=== PATIENT | female | born 1935 | race Caucasian/White ===

== ENCOUNTER 2017-09-11 09:53 | Inpatient (IN) | payer OTHER, MEDICARE ==
[2017-09-11] MEDS: CEFAZOLIN 1 GM/50 ML (PMX) 50 ML IVPB ×2 (12:00→20:59)
[2017-09-11] MEDS ORDERED: ACETAMINOPHEN 325 MG TAB PO (12:00)
[2017-09-11] MEDS ORDERED: NALOXONE (0.4 MG/ML) INJ IV (12:00)
[2017-09-11] MEDS ORDERED: ONDANSETRON 4 MG INJ IV ×2 (12:00→15:30)
[2017-09-11] MEDS ORDERED: PROPOFOL 20 ML (12:48)
[2017-09-11] MEDS ORDERED: GLYCOPYRROLATE 0.4 MG INJ ×2 (12:48→14:41)
[2017-09-11] MEDS ORDERED: LIDOCAINE 2% (SDV) 5 ML INJ (12:48)
[2017-09-11] MEDS ORDERED: SUCCINYLCHOLINE CHLORIDE 100 MG/5 ML SYG IV (12:48)
[2017-09-11] MEDS ORDERED: ROCURONIUM 50 MG INJ (12:48)
[2017-09-11] MEDS ORDERED: NEOSTIGMINE 3 MG/3 ML SYRINGE (12:48)
[2017-09-11] MEDS ORDERED: MEPERIDINE 100 MG INJ (12:50)
[2017-09-11] MEDS ORDERED: LABETALOL HCL 20MG INJ (13:26)
[2017-09-11] MEDS ORDERED: GELATIN SIZE 100 SPONGE (14:00)
[2017-09-11] MEDS ORDERED: FENTAnyl 50 MCG/ML VIAL (14:26)
[2017-09-11] MEDS ORDERED: CEFAZOLIN 1 GM INJ (14:41)
[2017-09-11] MEDS ORDERED: EPHEDrine SULFATE 50 MG/5 ML SYG (14:41)
[2017-09-11] MEDS: CA CHLORIDE 10% 10 ML SYRINGE (14:45)
[2017-09-11] MEDS: HEPARIN 1000 UNITS/ML 10 ML INJ (14:45)
[2017-09-11] MEDS: LIDOCAINE 1%/EPI 30 ML INJ (14:46)
[2017-09-11] MEDS: THROMBIN 5000 UNIT VIAL (14:46)
[2017-09-11] MEDS: GELATIN SIZE 100 SPONGE TOP (14:47)
[2017-09-11] MEDS ORDERED: METOCLOPRAMIDE 10 MG INJ (14:59)
[2017-09-11] MEDS ORDERED: ONDANSETRON 4 MG INJ (14:59)
[2017-09-11] MEDS ORDERED: NALOXONE (0.4 MG/ML) INJ (15:06)
[2017-09-11] MEDS: HYDROmorphONE 0.2 MG/ML PCA IV (15:21)
[2017-09-11] MEDS: HYDROmorphONE (0.2 MG/ML) 10ML SYG IV ×2 (15:28→16:02)
[2017-09-11] MEDS ORDERED: DIPHENHYDRAMINE 50 MG INJ IV (15:30)
[2017-09-11] MEDS ORDERED: OXYCODONE/ACETAMINOPHEN (5/325) TAB PO ×2 (15:30)
[2017-09-11] MEDS ORDERED: EPHEDrine SULFATE 50 MG/5 ML SYG IV (15:30)
[2017-09-11] MEDS ORDERED: MEPERIDINE 25 MG INJ IV (15:30)
[2017-09-11] MEDS ORDERED: LABETALOL HCL 20MG INJ IV (15:30)
[2017-09-11] MEDS ORDERED: MIDAZOLAM 1 MG/ML 2 ML INJ IV (15:30)
[2017-09-11] MEDS ORDERED: FENTAnyl 50 MCG/ML VIAL IV ×3 (15:30)
[2017-09-11] MEDS ORDERED: HYDROmorphONE (0.2 MG/ML) 10ML SYG IV (15:30)
[2017-09-11] MEDS ORDERED: METOCLOPRAMIDE 10 MG INJ IV (15:30)
[2017-09-11] MEDS ORDERED: hydrALAzine 20 MG INJ IV (15:30)
[2017-09-11] MEDS: D5W-0.45 NACL + KCL 20 MEQ 1,000 ML IV ×2 (15:50→21:46)
[2017-09-11] MEDS: DOCUSATE SODIUM 100 MG CAP PO (20:59)
[2017-09-11] MEDS: AL HYDROX/MG HYDROX/SIMETH 30 ML CUP PO (23:26)
[2017-09-12] MEDS: D5W-0.45 NACL + KCL 20 MEQ 1,000 ML IV ×4 (01:15→17:46)
[2017-09-12] MEDS: DIPHENHYDRAMINE 50 MG INJ IV (01:21)
[2017-09-12] MEDS: CEFAZOLIN 1 GM/50 ML (PMX) 50 ML IVPB (03:59)
[2017-09-12] MEDS: HYDROmorphONE 0.5 MG/0.5 ML SYG IV ×2 (04:42→08:42)
[2017-09-12 05:20] LABS: ADD MAN DIFF? NO
[2017-09-12 05:26] LABS: BASOPHILS % 0.1 % (0.0-2.0); HEMOGLOBIN 11.5 g/dl (12.0-16.0); LYMPHOCYTES % 27.3 % (15.0-51.0); MEAN CORPUSCULAR HEMOGLOBIN 30.5 pg (29.0-33.0); MEAN CORPUSCULAR HGB CONC 32.9 g/dl (32.0-37.0); MEAN CORPUSCULAR VOLUME 92.8 fl (82.0-101.0); MEAN PLATELET VOLUME 10.3 fl (7.4-10.4); MONOCYTE # 1.1 10^3/ul (0.3-0.9); MONOCYTES % 7.6 % (0.0-11.0); NEUTROPHIL # 9.5 10^3/ul (1.6-7.5); NEUTROPHILS % 64.5 % (39.0-77.0); PLATELET COUNT 264 10^3/UL (140-415); RED BLOOD COUNT 3.77 10^6/ul (4.20-5.40); RED CELL DISTRIBUTION WIDTH 13.9 % (11.5-14.5)
[2017-09-12 05:26] LABS: WHITE BLOOD COUNT 14.6 10^3/ul (4.8-10.8)
[2017-09-12] MEDS: PANTOPRAZOLE (EC) 40 MG TAB PO (05:34)
[2017-09-12] MEDS: HYDROmorphONE 0.2 MG/ML PCA IV ×2 (05:37→21:39)
[2017-09-12 06:39] LABS: ANION GAP 15 (8-16); BLOOD UREA NITROGEN 10 mg/dl (7-20); CALCIUM 8.3 mg/dl (8.4-10.2); CARBON DIOXIDE 25 mmol/L (21-31); CHLORIDE 105 mmol/L (97-110); CREATININE 0.67 mg/dl (0.44-1.00); GLUCOSE 108 mg/dl (70-220); POTASSIUM 4.8 mmol/L (3.5-5.1); SODIUM 140 mmol/L (135-144)
[2017-09-12] MEDS: DOCUSATE SODIUM 100 MG CAP PO ×2 (08:42→21:21)
[2017-09-12] MEDS ORDERED: HYDROCODONE/APAP (5/325) TAB PO (10:00)
[2017-09-12 22:23] LABS: ADD UMIC YES; UR ASCORBIC ACID NEGATIVE (NEGATIVE); UR BILIRUBIN (Dip) NEGATIVE (NEGATIVE); UR BLOOD (Dip) 3+ mg/dL (NEGATIVE); UR CLARITY CLEAR (CLEAR); UR COLOR COLORLESS (YELLOW); UR GLUCOSE (Dip) NEGATIVE (NEGATIVE); UR KETONES (Dip) NEGATIVE (NEGATIVE); UR LEUKOCYTE ESTERASE (Dip) NEGATIVE Leu/ul (NEGATIVE); UR NITRITE (Dip) NEGATIVE (NEGATIVE); UR RBC 2 /HPF (0-5); UR SPECIFIC GRAVITY (Dip) 1.002 (1.003-1.030); UR TOTAL PROTEIN (Dip) NEGATIVE (NEGATIVE); UR UROBILINOGEN (Dip) NEGATIVE (NEGATIVE); UR WBC 0 /HPF (0-5)
[2017-09-13] MEDS: D5W-0.45 NACL + KCL 20 MEQ 1,000 ML IV ×3 (03:44→23:46)
[2017-09-13] MEDS: PANTOPRAZOLE (EC) 40 MG TAB PO (05:08)
[2017-09-13 05:34] LABS: ADD MAN DIFF? NO
[2017-09-13 05:38] LABS: ABNORMAL IP MESSAGE 1; BASOPHIL # 0.1 10^3/ul (0.0-0.1); BASOPHILS % 0.4 % (0.0-2.0); EOSINOPHILS # 0.2 10^3/ul (0.0-0.5); EOSINOPHILS % 1.6 % (0.0-7.0); HEMATOCRIT 32.8 % (37.0-47.0); HEMOGLOBIN 11.1 g/dl (12.0-16.0); LYMPHOCYTES # 4.8 10^3/ul (0.8-2.9); LYMPHOCYTES % 31.8 % (15.0-51.0); MEAN CORPUSCULAR HEMOGLOBIN 31.1 pg (29.0-33.0); MEAN CORPUSCULAR HGB CONC 33.8 g/dl (32.0-37.0); MEAN CORPUSCULAR VOLUME 91.9 fl (82.0-101.0); MEAN PLATELET VOLUME 10.3 fl (7.4-10.4); MONOCYTE # 1.6 10^3/ul (0.3-0.9); MONOCYTES % 10.5 % (0.0-11.0); NEUTROPHIL # 8.3 10^3/ul (1.6-7.5); NEUTROPHILS % 55.3 % (39.0-77.0); PLATELET COUNT 228 10^3/UL (140-415); RED BLOOD COUNT 3.57 10^6/ul (4.20-5.40); RED CELL DISTRIBUTION WIDTH 13.9 % (11.5-14.5)
[2017-09-13 06:08] LABS: ANION GAP 12 (8-16); BLOOD UREA NITROGEN 4 mg/dl (7-20); CALCIUM 8.8 mg/dl (8.4-10.2); CARBON DIOXIDE 29 mmol/L (21-31); CHLORIDE 101 mmol/L (97-110); CREATININE 0.62 mg/dl (0.44-1.00); GLUCOSE 122 mg/dl (70-220); MAGNESIUM 2.4 mg/dl (1.7-2.5); POTASSIUM 4.6 mmol/L (3.5-5.1); SODIUM 137 mmol/L (135-144)
[2017-09-13 06:18] LABS: POSITIVE DIFF @See below
[2017-09-13] MEDS: CEPASTAT LOZENGE MT (07:47)
[2017-09-13] MEDS: DOCUSATE SODIUM 100 MG CAP PO ×2 (09:14→20:30)
[2017-09-13] MEDS: HYDROCODONE/APAP (5/325) TAB PO ×3 (09:14→20:31)
[2017-09-13] MEDS: AL HYDROX/MG HYDROX/SIMETH 30 ML CUP PO ×2 (15:10→21:56)
[2017-09-14 05:22] LABS: ADD MAN DIFF? NO
[2017-09-14 05:29] LABS: WHITE BLOOD COUNT 12.2 10^3/ul (4.8-10.8)
[2017-09-14 05:29] LABS: BASOPHIL # 0.1 10^3/ul (0.0-0.1); BASOPHILS % 0.5 % (0.0-2.0); EOSINOPHILS # 0.3 10^3/ul (0.0-0.5); EOSINOPHILS % 2.2 % (0.0-7.0); HEMATOCRIT 31.9 % (37.0-47.0); HEMOGLOBIN 10.8 g/dl (12.0-16.0); LYMPHOCYTES # 4.1 10^3/ul (0.8-2.9); LYMPHOCYTES % 33.6 % (15.0-51.0); MEAN CORPUSCULAR HEMOGLOBIN 30.7 pg (29.0-33.0); MEAN CORPUSCULAR HGB CONC 33.9 g/dl (32.0-37.0); MEAN CORPUSCULAR VOLUME 90.6 fl (82.0-101.0); MEAN PLATELET VOLUME 10.4 fl (7.4-10.4); MONOCYTE # 1.3 10^3/ul (0.3-0.9); MONOCYTES % 10.3 % (0.0-11.0); NEUTROPHIL # 6.5 10^3/ul (1.6-7.5); PLATELET COUNT 234 10^3/UL (140-415); RED BLOOD COUNT 3.52 10^6/ul (4.20-5.40); RED CELL DISTRIBUTION WIDTH 13.9 % (11.5-14.5)
[2017-09-14 05:44] LABS: ANION GAP 12 (8-16); BLOOD UREA NITROGEN 6 mg/dl (7-20); CARBON DIOXIDE 29 mmol/L (21-31); CHLORIDE 100 mmol/L (97-110); CREATININE 0.64 mg/dl (0.44-1.00); GLUCOSE 107 mg/dl (70-220); MAGNESIUM 2.3 mg/dl (1.7-2.5); POTASSIUM 4.2 mmol/L (3.5-5.1); SODIUM 137 mmol/L (135-144)
[2017-09-14] MEDS: PANTOPRAZOLE (EC) 40 MG TAB PO ×2 (06:00→07:50)
[2017-09-14] MEDS: HYDROCODONE/APAP (5/325) TAB PO ×4 (07:49→22:41)
[2017-09-14] MEDS: BISACODYL 10 MG SUPP PR (07:51)
[2017-09-14] MEDS: DOCUSATE SODIUM 100 MG CAP PO ×2 (07:51→20:24)
[2017-09-14] MEDS: D5W-0.45 NACL + KCL 20 MEQ 1,000 ML IV ×2 (09:46→19:46)
[2017-09-14] MEDS: AL HYDROX/MG HYDROX/SIMETH 30 ML CUP PO ×2 (12:46→20:24)
[2017-09-15] MEDS: D5W-0.45 NACL + KCL 20 MEQ 1,000 ML IV ×2 (04:57→15:46)
[2017-09-15] MEDS: BISACODYL 10 MG SUPP PR (05:58)
[2017-09-15] MEDS: PANTOPRAZOLE (EC) 40 MG TAB PO (05:58)
[2017-09-15] MEDS: HYDROCODONE/APAP (5/325) TAB PO ×2 (06:07→17:54)
[2017-09-15] MEDS: AL HYDROX/MG HYDROX/SIMETH 30 ML CUP PO (06:48)
[2017-09-15] MEDS: DOCUSATE SODIUM 100 MG CAP PO (08:44)
[2017-09-15] MEDS: POLYETHYLENE GLYCOL 17 GM PACKET PO (09:33)
[2017-09-15] MEDS: LACTULOSE 30ML CUP PO (15:44)
[2017-09-15] MEDS ORDERED: ATORVASTATIN 20 MG TAB PO (21:00)
== END 2017-09-15 18:00 | disposition home health service (06) | DRG 517 ==
LOC: REC 09:53 → MS1 16:50
PROC: 01NB0ZZ Release Lumbar Nerve, Open Approach (ICD-10-PCS; principal; 2017-09-11 12:00)
PROC: 07DR3ZZ Extraction of Iliac Bone Marrow, Percutaneous Approach (ICD-10-PCS; 2017-09-11 12:00)
DX: M48.062 Spinal stenosis, lumbar region with neurogenic claudication (principal); M81.0 Age-related osteoporosis without current pathological fracture; E55.9 Vitamin D deficiency, unspecified; E78.5 Hyperlipidemia, unspecified; M54.16 Radiculopathy, lumbar region; M53.2X6 Spinal instabilities, lumbar region
CPT/HCPCS: 72020; 80048; 81001; 83735; 85025; 86999; 87086; 97110; 97116; 97163; 97530

== ENCOUNTER 2018-11-18 22:49 | Inpatient (IN) | payer MEDICARE, OTHER ==
[2018-11-18 23:16] LABS: ADD MAN DIFF? NO
[2018-11-18 23:18] LABS: ABNORMAL IP MESSAGE 1; BASOPHIL # 0.1 10^3/ul (0.0-0.1); BASOPHILS % 0.5 % (0.0-2.0); EOSINOPHILS # 0.3 10^3/ul (0.0-0.5); EOSINOPHILS % 2.2 % (0.0-7.0); HEMATOCRIT 37.3 % (37.0-47.0); HEMOGLOBIN 12.4 g/dl (12.0-16.0); LYMPHOCYTES # 7.2 10^3/ul (0.8-2.9); MEAN CORPUSCULAR HEMOGLOBIN 30.4 pg (29.0-33.0); MEAN CORPUSCULAR HGB CONC 33.2 g/dl (32.0-37.0); MEAN CORPUSCULAR VOLUME 91.4 fl (82.0-101.0); MEAN PLATELET VOLUME 9.3 fl (7.4-10.4); MONOCYTE # 0.9 10^3/ul (0.3-0.9); NEUTROPHIL # 4.8 10^3/ul (1.6-7.5); NEUTROPHILS % 35.7 % (39.0-77.0); PLATELET COUNT 354 10^3/UL (140-415); RED BLOOD COUNT 4.08 10^6/ul (4.20-5.40); RED CELL DISTRIBUTION WIDTH 14.5 % (11.5-14.5)
[2018-11-18 23:18] LABS: WHITE BLOOD COUNT 13.4 10^3/ul (4.8-10.8)
[2018-11-18] MEDS: SOD CHLORIDE 0.9% 1,000 ML IV (23:22)
[2018-11-18] MEDS: KETOROLAC 30 MG INJ IV (23:22)
[2018-11-18] MEDS: DEXAMETHASONE 10 MG/ML 1 ML INJ IV (23:22)
[2018-11-18] MEDS: HYDROmorphONE 1 MG/ML SYG IV (23:23)
[2018-11-18] MEDS: ONDANSETRON 4 MG INJ IV (23:23)
[2018-11-18 23:35] LABS: LYMPHOCYTES % 54.2 % (15.0-51.0); POSITIVE DIFF @See below
[2018-11-18 23:36] LABS: ALANINE AMINOTRANSFERASE 20 IU/L (13-69); ALBUMIN 4.3 g/dl (3.3-4.9); ALBUMIN/GLOBULIN RATIO 1.72; ALKALINE PHOSPHATASE 67 IU/L (42-121); ANION GAP 7 (5-13); ASPARTATE AMINO TRANSFERASE 19 IU/L (15-46); BILIRUBIN,INDIRECT 0.4 mg/dl (0-1.1); BILIRUBIN,TOTAL 0.4 mg/dl (0.2-1.3); BLOOD UREA NITROGEN 18 mg/dl (7-20); CALCIUM 10.1 mg/dl (8.4-10.2); CARBON DIOXIDE 26 mmol/L (21-31); CHLORIDE 100 mmol/L (97-110); CREATININE 0.81 mg/dl (0.44-1.00); GLUCOSE 117 mg/dl (70-220); LIPASE 165 U/L (23-300); POTASSIUM 5.2 mmol/L (3.5-5.1); SODIUM 133 mmol/L (135-144); TOTAL PROTEIN 6.8 g/dl (6.1-8.1)
[2018-11-19] MEDS: LORAZEPAM 2 MG INJ IV (00:32)
[2018-11-19] MEDS: HYDROmorphONE 0.5 MG/0.5 ML SYG IV ×5 (00:33→17:45)
[2018-11-19 00:45] LABS: BAND NEUTROPHILS #M 0.6 10^3/ul (0.0-0.6); BAND NEUTROPHILS % (M) 5 % (0-4); BASOPHIL #M 0.1 10^3/ul (0.0-0.0); BASOPHILS % (M) 1 % (0-2); EOSINOPHILS % (M) 1 % (0-7); GIANT THROMBO% (M) 1 % (0-0); LYMPHOCYTES #M 6.5 10^3/ul (0.8-2.9); LYMPHOCYTES % (M) 49 % (15-51); MONOCYTES % (M) 8 % (0-11); PLATELET ESTIMATE NORMAL; PLATELET MORPHOLOGY COMMENT @See below; REACTIVE LYMPHOCYTES #M 0.8 10^3/ul (0.0-0.0); REACTIVE LYMPHOCYTES% (M) 6 % (0-0); SEG NEUT #M 4.1 10^3/ul (1.6-7.5); SEGMENTED NEUTROPHILS (M) % 30 % (39-77); SMUDGE%M 31 % (0-0)
[2018-11-19] MEDS ORDERED: ACETAMINOPHEN 325 MG TAB PO ×2 (01:30→02:00)
[2018-11-19] MEDS ORDERED: ONDANSETRON 4 MG INJ IV (01:30)
[2018-11-19] MEDS ORDERED: OXYCODONE/ACETAMINOPHEN (5/325) TAB PO (02:00)
[2018-11-19] MEDS ORDERED: ZOLPIDEM 5 MG TAB PO (02:00)
[2018-11-19] MEDS ORDERED: NACL 0.9% 3 ML SYG IV (02:00)
[2018-11-19 02:23] LABS: INR 0.93; PARTIAL THROMBOPLASTIN TIME 23.6 Sec (23.0-35.0); PROTIME 12.6 Sec (11.9-14.9)
[2018-11-19 04:07] LABS: ADD UMIC NO; UR ASCORBIC ACID 20 mg/dL (NEGATIVE); UR BILIRUBIN (Dip) NEGATIVE (NEGATIVE); UR BLOOD (Dip) NEGATIVE (NEGATIVE); UR CLARITY CLEAR (CLEAR); UR COLOR STRAW (YELLOW); UR GLUCOSE (Dip) NEGATIVE (NEGATIVE); UR KETONES (Dip) NEGATIVE (NEGATIVE); UR LEUKOCYTE ESTERASE (Dip) NEGATIVE Leu/ul (NEGATIVE); UR NITRITE (Dip) NEGATIVE (NEGATIVE); UR SPECIFIC GRAVITY (Dip) 1.009 (1.003-1.030); UR TOTAL PROTEIN (Dip) NEGATIVE (NEGATIVE); UR UROBILINOGEN (Dip) NEGATIVE (NEGATIVE)
[2018-11-19] MEDS: HEPARIN 5,000 UNIT/1 ML VIAL SC ×3 (09:00→21:10)
[2018-11-19] MEDS: FAMOTIDINE 20 MG TAB PO (09:20)
[2018-11-19] MEDS: ONDANSETRON 4 MG TAB PO ×2 (11:06→18:05)
[2018-11-19] MEDS: HYDROCODONE/APAP (5/325) TAB PO (11:30)
[2018-11-19] MEDS: POLYETHYLENE GLYCOL 17 GM PACKET PO (11:31)
[2018-11-19] MEDS: ATORVASTATIN 20 MG TAB PO (21:09)
[2018-11-19] MEDS: morphine 2 MG INJ IV (22:05)
[2018-11-20 05:16] LABS: ADD MAN DIFF? NO
[2018-11-20 05:28] LABS: HEMOGLOBIN A1C 5.5 % (0-5.9)
[2018-11-20 05:33] LABS: ABNORMAL IP MESSAGE 1; BASOPHILS % 0.2 % (0.0-2.0); EOSINOPHILS # 0.1 10^3/ul (0.0-0.5); EOSINOPHILS % 0.3 % (0.0-7.0); HEMATOCRIT 32.8 % (37.0-47.0); HEMOGLOBIN 11.1 g/dl (12.0-16.0); LYMPHOCYTES # 6.8 10^3/ul (0.8-2.9); LYMPHOCYTES % 46.8 % (15.0-51.0); MEAN CORPUSCULAR HEMOGLOBIN 30.9 pg (29.0-33.0); MEAN CORPUSCULAR HGB CONC 33.8 g/dl (32.0-37.0); MEAN CORPUSCULAR VOLUME 91.4 fl (82.0-101.0); MEAN PLATELET VOLUME 10.1 fl (7.4-10.4); MONOCYTE # 1.2 10^3/ul (0.3-0.9); MONOCYTES % 8.3 % (0.0-11.0); NEUTROPHIL # 6.4 10^3/ul (1.6-7.5); PLATELET COUNT 313 10^3/UL (140-415); RED BLOOD COUNT 3.59 10^6/ul (4.20-5.40); RED CELL DISTRIBUTION WIDTH 14.7 % (11.5-14.5)
[2018-11-20 05:33] LABS: WHITE BLOOD COUNT 14.6 10^3/ul (4.8-10.8)
[2018-11-20 05:35] LABS: POSITIVE DIFF @See below
[2018-11-20 05:37] LABS: ALANINE AMINOTRANSFERASE 24 IU/L (13-69); ALBUMIN 3.5 g/dl (3.3-4.9); ALKALINE PHOSPHATASE 55 IU/L (42-121); ANION GAP 6 (5-13); ASPARTATE AMINO TRANSFERASE 21 IU/L (15-46); BILIRUBIN,INDIRECT 0.5 mg/dl (0-1.1); BILIRUBIN,TOTAL 0.5 mg/dl (0.2-1.3); BLOOD UREA NITROGEN 16 mg/dl (7-20); CALCIUM 8.6 mg/dl (8.4-10.2); CARBON DIOXIDE 24 mmol/L (21-31); CHLORIDE 102 mmol/L (97-110); CREATININE 0.65 mg/dl (0.44-1.00); GLUCOSE 101 mg/dl (70-220); POTASSIUM 4.4 mmol/L (3.5-5.1); SODIUM 132 mmol/L (135-144)
[2018-11-20] MEDS: morphine 2 MG INJ IV ×2 (06:01→11:43)
[2018-11-20] MEDS: HEPARIN 5,000 UNIT/1 ML VIAL SC ×2 (08:00→21:00)
[2018-11-20] MEDS: POLYETHYLENE GLYCOL 17 GM PACKET PO (08:01)
[2018-11-20] MEDS: FAMOTIDINE 20 MG TAB PO (08:37)
[2018-11-20] MEDS ORDERED: FENTAnyl 50 MCG/ML VIAL ×2 (15:12→18:14)
[2018-11-20] MEDS ORDERED: MIDAZOLAM 1 MG/ML 2 ML INJ (15:12)
[2018-11-20] MEDS ORDERED: LIDOCAINE 2% (SDV) 5 ML INJ (16:26)
[2018-11-20] MEDS ORDERED: PROPOFOL 20 ML (16:26)
[2018-11-20] MEDS ORDERED: DEXAMETHASONE 4 MG/ML 5 ML INJ (16:27)
[2018-11-20] MEDS ORDERED: ONDANSETRON 4 MG INJ (16:27)
[2018-11-20] MEDS ORDERED: CEFAZOLIN 1 GM INJ (17:59)
[2018-11-20] MEDS ORDERED: SUGAMMADEX SODIUM 200 MG/2 ML VIAL IV (18:00)
[2018-11-20] MEDS ORDERED: ROCURONIUM 50 MG INJ ×2 (18:00)
[2018-11-20] MEDS ORDERED: morphine 4 MG/ML VIAL IV (18:30)
[2018-11-20] MEDS ORDERED: NACL 0.9% 3 ML SYG IV (18:30)
[2018-11-20] MEDS ORDERED: HYDROmorphONE 1 MG/5 ML IV SYRINGE IV ×3 (19:22→19:30)
[2018-11-20] MEDS ORDERED: MEPERIDINE 25 MG INJ IV (19:30)
[2018-11-20] MEDS ORDERED: DIPHENHYDRAMINE 50 MG INJ IV (19:30)
[2018-11-20] MEDS ORDERED: FENTAnyl 50 MCG/ML VIAL IV ×3 (19:30)
[2018-11-20] MEDS ORDERED: MIDAZOLAM 1 MG/ML 2 ML INJ IV (19:30)
[2018-11-20] MEDS ORDERED: KETOROLAC 30 MG INJ IV (19:30)
[2018-11-20] MEDS ORDERED: ALBUTEROL 0.083% (NEB) 2.5 MG/3 ML AMP HHN (19:30)
[2018-11-20] MEDS ORDERED: METOCLOPRAMIDE 10 MG INJ IV (19:30)
[2018-11-20] MEDS ORDERED: hydrALAzine 20 MG INJ IV (19:30)
[2018-11-20] MEDS ORDERED: EPHEDrine 25 MG/5 ML SYG IV (19:30)
[2018-11-20] MEDS ORDERED: ONDANSETRON 4 MG INJ IV (19:30)
[2018-11-20] MEDS ORDERED: LABETALOL HCL 20MG INJ IV (19:30)
[2018-11-20] MEDS ORDERED: OXYCODONE/ACETAMINOPHEN (5/325) TAB PO ×2 (19:30)
[2018-11-20 19:31] LABS: HEMATOCRIT 36.7 % (37.0-47.0); HEMOGLOBIN 12.1 g/dl (12.0-16.0)
[2018-11-20] MEDS: HYDROmorphONE 1 MG/5 ML IV SYRINGE IV (19:33)
[2018-11-20 19:51] LABS: ANION GAP 8 (5-13); BLOOD UREA NITROGEN 11 mg/dl (7-20); CALCIUM 8.4 mg/dl (8.4-10.2); CARBON DIOXIDE 24 mmol/L (21-31); CHLORIDE 104 mmol/L (97-110); CREATININE 0.72 mg/dl (0.44-1.00); GLUCOSE 129 mg/dl (70-220); POTASSIUM 4.3 mmol/L (3.5-5.1); SODIUM 136 mmol/L (135-144)
[2018-11-20] MEDS: D5W-0.45 NACL + KCL 20 MEQ 1,000 ML IV (20:47)
[2018-11-20] MEDS: ATORVASTATIN 20 MG TAB PO (20:52)
[2018-11-21] MEDS: ZOLPIDEM 5 MG TAB PO (02:13)
[2018-11-21] MEDS: D5W-0.45 NACL + KCL 20 MEQ 1,000 ML IV ×2 (05:55→15:13)
[2018-11-21] MEDS: FAMOTIDINE 20 MG TAB PO (08:38)
[2018-11-21] MEDS: HYDROCODONE/APAP (5/325) TAB PO ×3 (08:38→16:48)
[2018-11-21] MEDS: POLYETHYLENE GLYCOL 17 GM PACKET PO (08:38)
[2018-11-21] MEDS: ENOXAPARIN 40 MG/0.4 ML SYG SC (08:39)
[2018-11-21] MEDS: HEPARIN 5,000 UNIT/1 ML VIAL SC (08:39)
[2018-11-21] MEDS: MAGNESIUM HYDROXIDE 30ML CUP PO (13:04)
[2018-11-21] MEDS: DOCUSATE SODIUM 100 MG CAP PO (13:05)
[2018-11-21] MEDS ORDERED: CEFAZOLIN 1 GM/50 ML (PMX) 50 ML IVPB (20:00)
== END 2018-11-21 19:10 | DRG 482 ==
LOC: E/R 22:49 → MS1 11-19 01:16
PROC: 0QS706Z Reposition Left Upper Femur with Intramedullary Internal Fixation Device, Open Approach (ICD-10-PCS; principal; 2018-11-20 14:00)
DX: S72.322A Displaced transverse fracture of shaft of left femur, initial encounter for closed fracture (principal); M81.0 Age-related osteoporosis without current pathological fracture; M48.00 Spinal stenosis, site unspecified; F41.9 Anxiety disorder, unspecified; E78.5 Hyperlipidemia, unspecified; M19.90 Unspecified osteoarthritis, unspecified site; W01.0XXA Fall on same level from slipping, tripping and stumbling without subsequent striking against object, initial encounter
CPT/HCPCS: 36415; 71045; 72100; 73510; 73550; 74018; 80048; 80053; 81003; 83036; 83690; 85014; 85018; 85025; 85610; 85730; 86850; 86900; 86901; 86920; 93005; 96361; 96374; 96375; 96376; 97162; 99285-25

== ENCOUNTER 2018-11-21 20:01 | Inpatient (IN) | payer MEDICARE, OTHER ==
[2018-11-21] MEDS ORDERED: MAGNESIUM HYDROXIDE 30ML CUP PO (21:30)
[2018-11-21] MEDS ORDERED: ACETAMINOPHEN 325 MG TAB PO (21:30)
[2018-11-21] MEDS ORDERED: NACL 0.9% 3 ML SYG IV (21:30)
[2018-11-21] MEDS ORDERED: DOCUSATE SODIUM 100 MG CAP PO (21:30)
[2018-11-21] MEDS: CEFAZOLIN 1 GM/50 ML (PMX) 50 ML IVPB (22:22)
[2018-11-21] MEDS: ATORVASTATIN 20 MG TAB PO (22:23)
[2018-11-21] MEDS: ZOLPIDEM 5 MG TAB PO (22:23)
[2018-11-21] MEDS: DOCUSATE SODIUM 100 MG CAP PO (22:23)
[2018-11-21] MEDS: SENNA TAB PO (22:24)
[2018-11-22 00:49] LABS: ADD UMIC YES; UR ASCORBIC ACID NEGATIVE (NEGATIVE); UR BILIRUBIN (Dip) NEGATIVE (NEGATIVE); UR BLOOD (Dip) 1+ mg/dL (NEGATIVE); UR CLARITY CLEAR (CLEAR); UR COLOR COLORLESS (YELLOW); UR GLUCOSE (Dip) NEGATIVE (NEGATIVE); UR KETONES (Dip) NEGATIVE (NEGATIVE); UR LEUKOCYTE ESTERASE (Dip) NEGATIVE Leu/ul (NEGATIVE); UR MUCUS FEW /HPF (NONE SEEN); UR NITRITE (Dip) NEGATIVE (NEGATIVE); UR RBC 4 /HPF (0-5); UR SPECIFIC GRAVITY (Dip) 1.005 (1.003-1.030); UR TOTAL PROTEIN (Dip) NEGATIVE (NEGATIVE); UR UROBILINOGEN (Dip) NEGATIVE (NEGATIVE); UR WBC 0 /HPF (0-5)
[2018-11-22] MEDS: CEFAZOLIN 1 GM/50 ML (PMX) 50 ML IVPB ×2 (06:02→13:08)
[2018-11-22] MEDS: HYDROCODONE/APAP (5/325) TAB PO ×2 (06:10→08:47)
[2018-11-22 07:56] LABS: WHITE BLOOD COUNT 16.6 10^3/ul (4.8-10.8)
[2018-11-22 07:56] LABS: ABNORMAL IP MESSAGE 1; HEMATOCRIT 31.1 % (37.0-47.0); HEMOGLOBIN 10.1 g/dl (12.0-16.0); MEAN CORPUSCULAR HEMOGLOBIN 29.8 pg (29.0-33.0); MEAN CORPUSCULAR HGB CONC 32.5 g/dl (32.0-37.0); MEAN CORPUSCULAR VOLUME 91.7 fl (82.0-101.0); MEAN PLATELET VOLUME 10.4 fl (7.4-10.4); PLATELET COUNT 279 10^3/UL (140-415); RED BLOOD COUNT 3.39 10^6/ul (4.20-5.40); RED CELL DISTRIBUTION WIDTH 15.3 % (11.5-14.5)
[2018-11-22 08:03] LABS: ADD MAN DIFF? YES; POSITIVE DIFF @See below
[2018-11-22] MEDS: POLYETHYLENE GLYCOL 17 GM PACKET PO (08:12)
[2018-11-22] MEDS: FAMOTIDINE 20 MG TAB PO (08:12)
[2018-11-22] MEDS: DOCUSATE SODIUM 100 MG CAP PO ×2 (08:12→20:09)
[2018-11-22 08:17] LABS: ALANINE AMINOTRANSFERASE 21 IU/L (13-69); ALBUMIN 3.1 g/dl (3.3-4.9); ALBUMIN/GLOBULIN RATIO 1.34; ALKALINE PHOSPHATASE 55 IU/L (42-121); ANION GAP 5 (5-13); ASPARTATE AMINO TRANSFERASE 24 IU/L (15-46); BILIRUBIN,INDIRECT 0.5 mg/dl (0-1.1); BILIRUBIN,TOTAL 0.5 mg/dl (0.2-1.3); BLOOD UREA NITROGEN 15 mg/dl (7-20); CALCIUM 8.7 mg/dl (8.4-10.2); CARBON DIOXIDE 26 mmol/L (21-31); CHLORIDE 103 mmol/L (97-110); CREATININE 0.71 mg/dl (0.44-1.00); GLUCOSE 90 mg/dl (70-220); POTASSIUM 4.3 mmol/L (3.5-5.1); SODIUM 134 mmol/L (135-144); TOTAL PROTEIN 5.4 g/dl (6.1-8.1)
[2018-11-22] MEDS: ENOXAPARIN 40 MG/0.4 ML SYG SC (08:22)
[2018-11-22] MEDS: morphine 2 MG INJ IV ×2 (08:23→13:06)
[2018-11-22 09:00] LABS: ANISOCYTOSIS 1+ (0-0); LYMPHOCYTES #M 12.1 10^3/ul (0.8-2.9); LYMPHOCYTES % (M) 73 % (15-51); MICROCYTOSIS 1+ (0-0); MONOCYTE #M 0.3 10^3/ul (0.3-0.9); MONOCYTES % (M) 2 % (0-11); PLATELET ESTIMATE NORMAL; POLYCHROMASIA 1+ (0-0); SEGMENTED NEUTROPHILS (M) % 25 % (39-77); SMUDGE%M 8 % (0-0)
[2018-11-22] MEDS: HYDROmorphONE 1 MG/ML SYG IV ×3 (15:00→17:52)
[2018-11-22] MEDS: ONDANSETRON 4 MG TAB PO (17:47)
[2018-11-22] MEDS: HYDROmorphONE 0.5 MG/0.5 ML SYG IV (20:09)
[2018-11-22] MEDS: SENNA TAB PO (20:09)
[2018-11-22] MEDS: ATORVASTATIN 20 MG TAB PO (20:09)
[2018-11-22] MEDS: ZOLPIDEM 5 MG TAB PO (21:35)
[2018-11-23] MEDS: LACTULOSE 30ML CUP PO (06:05)
[2018-11-23] MEDS: HYDROmorphONE 0.5 MG/0.5 ML SYG IV ×2 (07:39→08:36)
[2018-11-23] MEDS: DOCUSATE SODIUM 100 MG CAP PO ×2 (09:00→20:39)
[2018-11-23] MEDS: POLYETHYLENE GLYCOL 17 GM PACKET PO (09:00)
[2018-11-23] MEDS: FAMOTIDINE 20 MG TAB PO (09:30)
[2018-11-23] MEDS: ENOXAPARIN 40 MG/0.4 ML SYG SC (09:32)
[2018-11-23] MEDS: HYDROmorphONE 1 MG/ML SYG IV ×4 (10:40→19:36)
[2018-11-23] MEDS: BISACODYL 10 MG SUPP PR (10:46)
[2018-11-23] MEDS: DEXTROSE 5%-0.45% NACL 1,000 ML IV (13:36)
[2018-11-23 14:06] LABS: ADD MAN DIFF? NO
[2018-11-23 14:08] LABS: WHITE BLOOD COUNT 17.4 10^3/ul (4.8-10.8)
[2018-11-23 14:08] LABS: BASOPHIL # 0.1 10^3/ul (0.0-0.1); BASOPHILS % 0.4 % (0.0-2.0); EOSINOPHILS # 0.1 10^3/ul (0.0-0.5); EOSINOPHILS % 0.3 % (0.0-7.0); HEMATOCRIT 33.4 % (37.0-47.0); LYMPHOCYTES # 4.3 10^3/ul (0.8-2.9); LYMPHOCYTES % 24.4 % (15.0-51.0); MEAN CORPUSCULAR HEMOGLOBIN 30.8 pg (29.0-33.0); MEAN CORPUSCULAR HGB CONC 32.9 g/dl (32.0-37.0); MEAN CORPUSCULAR VOLUME 93.6 fl (82.0-101.0); MEAN PLATELET VOLUME 9.7 fl (7.4-10.4); MONOCYTE # 1.2 10^3/ul (0.3-0.9); NEUTROPHIL # 11.5 10^3/ul (1.6-7.5); NEUTROPHILS % 65.8 % (39.0-77.0); PLATELET COUNT 326 10^3/UL (140-415); RED BLOOD COUNT 3.57 10^6/ul (4.20-5.40)
[2018-11-23 14:24] LABS: ALANINE AMINOTRANSFERASE 21 IU/L (13-69); ALBUMIN 3.5 g/dl (3.3-4.9); ALBUMIN/GLOBULIN RATIO 1.29; ALKALINE PHOSPHATASE 74 IU/L (42-121); ANION GAP 10 (5-13); ASPARTATE AMINO TRANSFERASE 26 IU/L (15-46); BILIRUBIN,INDIRECT 0.6 mg/dl (0-1.1); BILIRUBIN,TOTAL 0.6 mg/dl (0.2-1.3); BLOOD UREA NITROGEN 20 mg/dl (7-20); CALCIUM 9.4 mg/dl (8.4-10.2); CARBON DIOXIDE 24 mmol/L (21-31); CHLORIDE 99 mmol/L (97-110); CREATININE 0.91 mg/dl (0.44-1.00); GLUCOSE 152 mg/dl (70-220); POTASSIUM 4.4 mmol/L (3.5-5.1); SODIUM 133 mmol/L (135-144); TOTAL PROTEIN 6.2 g/dl (6.1-8.1)
[2018-11-23] MEDS: MULTIVITAMINS THERAPEUTIC TAB PO (19:35)
[2018-11-23] MEDS: ZOLPIDEM 5 MG TAB PO (20:39)
[2018-11-23] MEDS: ATORVASTATIN 20 MG TAB PO (20:41)
[2018-11-23] MEDS: SENNA TAB PO (20:41)
[2018-11-24 06:43] LABS: ADD MAN DIFF? NO
[2018-11-24 06:46] LABS: WHITE BLOOD COUNT 15.4 10^3/ul (4.8-10.8)
[2018-11-24 06:46] LABS: ABNORMAL IP MESSAGE 1; BASOPHIL # 0.1 10^3/ul (0.0-0.1); BASOPHILS % 0.5 % (0.0-2.0); EOSINOPHILS # 0.5 10^3/ul (0.0-0.5); EOSINOPHILS % 3.1 % (0.0-7.0); HEMATOCRIT 29.4 % (37.0-47.0); HEMOGLOBIN 9.7 g/dl (12.0-16.0); LYMPHOCYTES # 6.4 10^3/ul (0.8-2.9); LYMPHOCYTES % 41.3 % (15.0-51.0); MEAN CORPUSCULAR HEMOGLOBIN 30.6 pg (29.0-33.0); MEAN CORPUSCULAR VOLUME 92.7 fl (82.0-101.0); MONOCYTE # 1.2 10^3/ul (0.3-0.9); MONOCYTES % 7.7 % (0.0-11.0); NEUTROPHIL # 7.2 10^3/ul (1.6-7.5); NEUTROPHILS % 46.5 % (39.0-77.0); PLATELET COUNT 305 10^3/UL (140-415); RED BLOOD COUNT 3.17 10^6/ul (4.20-5.40); RED CELL DISTRIBUTION WIDTH 14.8 % (11.5-14.5)
[2018-11-24 06:49] LABS: POSITIVE DIFF @See below
[2018-11-24 07:13] LABS: ANION GAP 4 (5-13); BLOOD UREA NITROGEN 12 mg/dl (7-20); CALCIUM 8.7 mg/dl (8.4-10.2); CARBON DIOXIDE 26 mmol/L (21-31); CHLORIDE 103 mmol/L (97-110); CREATININE 0.69 mg/dl (0.44-1.00); GLUCOSE 113 mg/dl (70-220); POTASSIUM 4.1 mmol/L (3.5-5.1); SODIUM 133 mmol/L (135-144)
[2018-11-24] MEDS: POLYETHYLENE GLYCOL 17 GM PACKET PO (09:00)
[2018-11-24] MEDS: DOCUSATE SODIUM 100 MG CAP PO ×2 (09:00→21:00)
[2018-11-24] MEDS: DEXTROSE 5%-0.45% NACL 1,000 ML IV (09:15)
[2018-11-24] MEDS: MULTIVITAMINS THERAPEUTIC TAB PO (09:28)
[2018-11-24] MEDS: FAMOTIDINE 20 MG TAB PO (09:28)
[2018-11-24] MEDS: ENOXAPARIN 40 MG/0.4 ML SYG SC (09:29)
[2018-11-24] MEDS: HYDROCODONE/APAP (5/325) TAB PO ×2 (16:48→22:18)
[2018-11-24] MEDS: SENNA TAB PO (21:00)
[2018-11-24] MEDS: ATORVASTATIN 20 MG TAB PO (21:03)
[2018-11-24] MEDS: ZOLPIDEM 5 MG TAB PO (23:12)
[2018-11-25] MEDS: DEXTROSE 5%-0.45% NACL 1,000 ML IV ×2 (02:34→21:13)
[2018-11-25] MEDS: HYDROCODONE/APAP (5/325) TAB PO ×3 (06:38→21:07)
[2018-11-25] MEDS: POLYETHYLENE GLYCOL 17 GM PACKET PO (09:00)
[2018-11-25] MEDS: DOCUSATE SODIUM 100 MG CAP PO ×2 (09:21→20:24)
[2018-11-25] MEDS: FAMOTIDINE 20 MG TAB PO (09:22)
[2018-11-25] MEDS: MULTIVITAMINS THERAPEUTIC TAB PO (09:22)
[2018-11-25] MEDS: ENOXAPARIN 40 MG/0.4 ML SYG SC (09:36)
[2018-11-25] MEDS: ATORVASTATIN 20 MG TAB PO (20:24)
[2018-11-25] MEDS: SENNA TAB PO (21:00)
[2018-11-25] MEDS: ZOLPIDEM 5 MG TAB PO (21:06)
[2018-11-26 07:46] LABS: ANION GAP 4 (5-13); BLOOD UREA NITROGEN 8 mg/dl (7-20); CALCIUM 8.5 mg/dl (8.4-10.2); CARBON DIOXIDE 27 mmol/L (21-31); CHLORIDE 107 mmol/L (97-110); CREATININE 0.62 mg/dl (0.44-1.00); GLUCOSE 105 mg/dl (70-220); POTASSIUM 4.2 mmol/L (3.5-5.1); SODIUM 138 mmol/L (135-144)
[2018-11-26] MEDS: FAMOTIDINE 20 MG TAB PO (08:38)
[2018-11-26] MEDS: HYDROCODONE/APAP (5/325) TAB PO ×3 (08:38→21:18)
[2018-11-26] MEDS: MULTIVITAMINS THERAPEUTIC TAB PO (08:39)
[2018-11-26] MEDS: POLYETHYLENE GLYCOL 17 GM PACKET PO (08:39)
[2018-11-26] MEDS: DOCUSATE SODIUM 100 MG CAP PO ×2 (08:39→21:18)
[2018-11-26] MEDS: ENOXAPARIN 40 MG/0.4 ML SYG SC (08:44)
[2018-11-26] MEDS: HYDROmorphONE 1 MG/ML SYG IV (10:31)
[2018-11-26] MEDS: SENNA TAB PO (21:17)
[2018-11-26] MEDS: ATORVASTATIN 20 MG TAB PO (21:17)
[2018-11-26] MEDS: ZOLPIDEM 5 MG TAB PO (21:18)
[2018-11-27] MEDS: LACTULOSE 30ML CUP PO (07:56)
[2018-11-27] MEDS: ENOXAPARIN 40 MG/0.4 ML SYG SC (09:00)
[2018-11-27] MEDS: DOCUSATE SODIUM 100 MG CAP PO ×2 (09:37→21:43)
[2018-11-27] MEDS: MULTIVITAMINS THERAPEUTIC TAB PO (09:37)
[2018-11-27] MEDS: POLYETHYLENE GLYCOL 17 GM PACKET PO (09:37)
[2018-11-27] MEDS: FAMOTIDINE 20 MG TAB PO (09:37)
[2018-11-27] MEDS: HYDROmorphONE 1 MG/ML SYG IV ×2 (10:14→19:58)
[2018-11-27] MEDS: BISACODYL 10 MG SUPP PR (10:53)
[2018-11-27] MEDS: ATORVASTATIN 20 MG TAB PO (21:42)
[2018-11-27] MEDS: SENNA TAB PO (21:42)
[2018-11-27] MEDS: ZOLPIDEM 5 MG TAB PO (21:43)
[2018-11-27] MEDS: LACTATED RINGER'S 500 ML IV (21:47)
[2018-11-28] MEDS: DOCUSATE SODIUM 100 MG CAP PO ×2 (08:12→21:19)
[2018-11-28] MEDS: FAMOTIDINE 20 MG TAB PO (08:12)
[2018-11-28] MEDS: POLYETHYLENE GLYCOL 17 GM PACKET PO (08:12)
[2018-11-28] MEDS: MULTIVITAMINS THERAPEUTIC TAB PO (08:12)
[2018-11-28] MEDS: HYDROmorphONE 1 MG/ML SYG IV ×3 (08:13→21:19)
[2018-11-28] MEDS: ENOXAPARIN 40 MG/0.4 ML SYG SC (08:24)
[2018-11-28] MEDS: ATORVASTATIN 20 MG TAB PO (21:19)
[2018-11-28] MEDS: SENNA TAB PO (21:19)
[2018-11-28] MEDS: ZOLPIDEM 5 MG TAB PO (21:19)
[2018-11-28] MEDS: HYDROCORTISONE 0.5% 28.35 GM CR TOP (21:21)
[2018-11-29] MEDS: POLYETHYLENE GLYCOL 17 GM PACKET PO (09:06)
[2018-11-29] MEDS: DOCUSATE SODIUM 100 MG CAP PO ×2 (09:06→20:22)
[2018-11-29] MEDS: FAMOTIDINE 20 MG TAB PO (09:07)
[2018-11-29] MEDS: ENOXAPARIN 40 MG/0.4 ML SYG SC (09:07)
[2018-11-29] MEDS: MULTIVITAMINS THERAPEUTIC TAB PO (09:07)
[2018-11-29] MEDS: HYDROmorphONE 1 MG/ML SYG IV ×2 (09:07→21:27)
[2018-11-29] MEDS: HYDROCORTISONE 0.5% 28.35 GM CR TOP ×2 (15:03→21:28)
[2018-11-29] MEDS: ATORVASTATIN 20 MG TAB PO (20:21)
[2018-11-29] MEDS: SENNA TAB PO (20:22)
[2018-11-29] MEDS: ZOLPIDEM 5 MG TAB PO (21:27)
[2018-11-30] MEDS: DOCUSATE SODIUM 100 MG CAP PO ×2 (08:32→21:00)
[2018-11-30] MEDS: MULTIVITAMINS THERAPEUTIC TAB PO (08:32)
[2018-11-30] MEDS: FAMOTIDINE 20 MG TAB PO (08:33)
[2018-11-30] MEDS: ENOXAPARIN 40 MG/0.4 ML SYG SC (08:35)
[2018-11-30] MEDS: POLYETHYLENE GLYCOL 17 GM PACKET PO (08:35)
[2018-11-30] MEDS: HYDROmorphONE 1 MG/ML SYG IV ×2 (17:51→21:24)
[2018-11-30] MEDS: SERTRALINE 50 MG TAB PO (17:51)
[2018-11-30] MEDS: SENNA TAB PO (21:00)
[2018-11-30] MEDS: ATORVASTATIN 20 MG TAB PO (21:24)
[2018-11-30] MEDS: ZOLPIDEM 5 MG TAB PO (21:24)
[2018-11-30] MEDS: HYDROCORTISONE 0.5% 28.35 GM CR TOP (21:24)
[2018-12-01] MEDS: HYDROmorphONE 1 MG/ML SYG IV ×3 (04:47→11:22)
[2018-12-01] MEDS: ENOXAPARIN 40 MG/0.4 ML SYG SC (07:58)
[2018-12-01] MEDS: POLYETHYLENE GLYCOL 17 GM PACKET PO ×2 (09:00→10:13)
[2018-12-01] MEDS: DOCUSATE SODIUM 100 MG CAP PO ×2 (09:00→21:45)
[2018-12-01] MEDS: ONDANSETRON 4 MG TAB PO (10:11)
[2018-12-01] MEDS: MULTIVITAMINS THERAPEUTIC TAB PO (10:12)
[2018-12-01] MEDS: SERTRALINE 50 MG TAB PO (10:12)
[2018-12-01] MEDS: FAMOTIDINE 20 MG TAB PO (10:15)
[2018-12-01] MEDS: OXYCODONE/ACETAMINOPHEN (5/325) TAB PO ×2 (16:32→21:46)
[2018-12-01] MEDS: ZOLPIDEM 5 MG TAB PO (21:45)
[2018-12-01] MEDS: ATORVASTATIN 20 MG TAB PO (21:45)
[2018-12-01] MEDS: SENNA TAB PO (21:45)
[2018-12-02 07:09] LABS: ADD MAN DIFF? NO
[2018-12-02 07:10] LABS: WHITE BLOOD COUNT 14.8 10^3/ul (4.8-10.8)
[2018-12-02 07:10] LABS: ABNORMAL IP MESSAGE 1; BASOPHIL # 0.1 10^3/ul (0.0-0.1); BASOPHILS % 0.5 % (0.0-2.0); EOSINOPHILS # 0.4 10^3/ul (0.0-0.5); EOSINOPHILS % 2.7 % (0.0-7.0); HEMATOCRIT 30.9 % (37.0-47.0); HEMOGLOBIN 9.7 g/dl (12.0-16.0); LYMPHOCYTES # 6.2 10^3/ul (0.8-2.9); LYMPHOCYTES % 42.3 % (15.0-51.0); MEAN CORPUSCULAR HGB CONC 31.4 g/dl (32.0-37.0); MEAN CORPUSCULAR VOLUME 95.7 fl (82.0-101.0); MEAN PLATELET VOLUME 9.3 fl (7.4-10.4); MONOCYTES % 6.9 % (0.0-11.0); NEUTROPHIL # 6.6 10^3/ul (1.6-7.5); NEUTROPHILS % 44.9 % (39.0-77.0); NUCLEATED RED BLOOD CELLS% 0.1 /100WBC (0.0-0.0); PLATELET COUNT 481 10^3/UL (140-415); RED BLOOD COUNT 3.23 10^6/ul (4.20-5.40); RED CELL DISTRIBUTION WIDTH 15.6 % (11.5-14.5)
[2018-12-02 07:13] LABS: POSITIVE DIFF @See below
[2018-12-02 08:07] LABS: ANION GAP 5 (5-13); BLOOD UREA NITROGEN 20 mg/dl (7-20); CALCIUM 8.6 mg/dl (8.4-10.2); CARBON DIOXIDE 27 mmol/L (21-31); CHLORIDE 106 mmol/L (97-110); CREATININE 0.58 mg/dl (0.44-1.00); GLUCOSE 91 mg/dl (70-220); POTASSIUM 4.7 mmol/L (3.5-5.1); SODIUM 138 mmol/L (135-144)
[2018-12-02] MEDS: HYDROCORTISONE 0.5% 28.35 GM CR TOP (08:37)
[2018-12-02] MEDS: POLYETHYLENE GLYCOL 17 GM PACKET PO (08:42)
[2018-12-02] MEDS: MULTIVITAMINS THERAPEUTIC TAB PO (08:43)
[2018-12-02] MEDS: DOCUSATE SODIUM 100 MG CAP PO ×2 (08:43→21:00)
[2018-12-02] MEDS: SERTRALINE 50 MG TAB PO (08:43)
[2018-12-02] MEDS: FAMOTIDINE 20 MG TAB PO (08:43)
[2018-12-02] MEDS: ENOXAPARIN 30 MG/0.3 ML SYG SC (08:45)
[2018-12-02] MEDS: OXYCODONE/ACETAMINOPHEN (5/325) TAB PO ×3 (08:46→21:01)
[2018-12-02] MEDS: DICLOFENAC SODIUM 1% GEL 100 GM TUBE TP ×3 (13:47→21:00)
[2018-12-02] MEDS: ATORVASTATIN 20 MG TAB PO (20:59)
[2018-12-02] MEDS: SENNA TAB PO (21:00)
[2018-12-02] MEDS: ZOLPIDEM 5 MG TAB PO (21:00)
[2018-12-03] MEDS: DOCUSATE SODIUM 100 MG CAP PO ×2 (09:00→21:42)
[2018-12-03] MEDS: POLYETHYLENE GLYCOL 17 GM PACKET PO (09:00)
[2018-12-03] MEDS: MULTIVITAMINS THERAPEUTIC TAB PO (09:07)
[2018-12-03] MEDS: FAMOTIDINE 20 MG TAB PO (09:08)
[2018-12-03] MEDS: SERTRALINE 50 MG TAB PO (09:08)
[2018-12-03] MEDS: DICLOFENAC SODIUM 1% GEL 100 GM TUBE TP ×4 (09:09→21:43)
[2018-12-03] MEDS: HYDROCORTISONE 0.5% 28.35 GM CR TOP (09:09)
[2018-12-03] MEDS: OXYCODONE/ACETAMINOPHEN (5/325) TAB PO ×2 (09:10→21:42)
[2018-12-03] MEDS: ENOXAPARIN 30 MG/0.3 ML SYG SC (09:23)
[2018-12-03] MEDS: IOHEXOL 14.3 MG(I)/ML (ADULT) BTL PO (20:00)
[2018-12-03] MEDS: SENNA TAB PO (21:40)
[2018-12-03] MEDS: ATORVASTATIN 20 MG TAB PO (21:40)
[2018-12-03] MEDS: ZOLPIDEM 5 MG TAB PO (21:42)
[2018-12-04] MEDS: OXYCODONE/ACETAMINOPHEN (5/325) TAB PO ×3 (06:45→21:08)
[2018-12-04 07:19] LABS: ADD MAN DIFF? NO
[2018-12-04 07:23] LABS: WHITE BLOOD COUNT 16.2 10^3/ul (4.8-10.8)
[2018-12-04 07:23] LABS: ABNORMAL IP MESSAGE 1; BASOPHIL # 0.1 10^3/ul (0.0-0.1); BASOPHILS % 0.5 % (0.0-2.0); EOSINOPHILS # 0.4 10^3/ul (0.0-0.5); EOSINOPHILS % 2.5 % (0.0-7.0); HEMATOCRIT 34.5 % (37.0-47.0); HEMOGLOBIN 10.9 g/dl (12.0-16.0); LYMPHOCYTES # 6.7 10^3/ul (0.8-2.9); LYMPHOCYTES % 41.4 % (15.0-51.0); MEAN CORPUSCULAR HEMOGLOBIN 30.4 pg (29.0-33.0); MEAN CORPUSCULAR HGB CONC 31.6 g/dl (32.0-37.0); MEAN CORPUSCULAR VOLUME 96.4 fl (82.0-101.0); MEAN PLATELET VOLUME 9.1 fl (7.4-10.4); MONOCYTE # 0.8 10^3/ul (0.3-0.9); MONOCYTES % 5.1 % (0.0-11.0); NEUTROPHIL # 7.9 10^3/ul (1.6-7.5); NUCLEATED RED BLOOD CELLS% 0.1 /100WBC (0.0-0.0); PLATELET COUNT 591 10^3/UL (140-415); RED BLOOD COUNT 3.58 10^6/ul (4.20-5.40); RED CELL DISTRIBUTION WIDTH 16.3 % (11.5-14.5)
[2018-12-04 07:26] LABS: POSITIVE DIFF @See below
[2018-12-04 07:44] LABS: ALANINE AMINOTRANSFERASE 24 IU/L (13-69); ALBUMIN 3.8 g/dl (3.3-4.9); ALKALINE PHOSPHATASE 170 IU/L (42-121); ANION GAP 10 (5-13); ASPARTATE AMINO TRANSFERASE 23 IU/L (15-46); BILIRUBIN,INDIRECT 0.6 mg/dl (0-1.1); BILIRUBIN,TOTAL 0.6 mg/dl (0.2-1.3); BLOOD UREA NITROGEN 17 mg/dl (7-20); CALCIUM 9.2 mg/dl (8.4-10.2); CARBON DIOXIDE 29 mmol/L (21-31); CHLORIDE 104 mmol/L (97-110); CREATININE 0.67 mg/dl (0.44-1.00); GLUCOSE 99 mg/dl (70-220); LACTATE DEHYDROGENASE 576 IU/L (313-618); POTASSIUM 4.1 mmol/L (3.5-5.1); SODIUM 143 mmol/L (135-144); TOTAL PROTEIN 6.5 g/dl (6.1-8.1); URIC ACID 3.4 mg/dl (3.1-7.9)
[2018-12-04 08:28] LABS: IMMUNOGLOBULIN A 89 mg/dl (70-400); IMMUNOGLOBULIN G 425 mg/dl (700-1600)
[2018-12-04 08:50] LABS: IMMUNOGLOBULIN M < 25 mg/dl (40-230)
[2018-12-04] MEDS: SERTRALINE 50 MG TAB PO (10:42)
[2018-12-04] MEDS: MULTIVITAMINS THERAPEUTIC TAB PO (10:42)
[2018-12-04] MEDS: FAMOTIDINE 20 MG TAB PO (10:42)
[2018-12-04] MEDS: DOCUSATE SODIUM 100 MG CAP PO ×2 (10:42→21:07)
[2018-12-04] MEDS: DICLOFENAC SODIUM 1% GEL 100 GM TUBE TP ×4 (10:44→21:00)
[2018-12-04] MEDS: ENOXAPARIN 30 MG/0.3 ML SYG SC (10:44)
[2018-12-04] MEDS: POLYETHYLENE GLYCOL 17 GM PACKET PO (10:44)
[2018-12-04] MEDS: ATORVASTATIN 20 MG TAB PO (21:07)
[2018-12-04] MEDS: ZOLPIDEM 5 MG TAB PO (21:08)
[2018-12-04] MEDS: SENNA TAB PO (21:08)
[2018-12-05] MEDS: OXYCODONE/ACETAMINOPHEN (5/325) TAB PO ×2 (06:56→21:15)
[2018-12-05] MEDS: MULTIVITAMINS THERAPEUTIC TAB PO (08:37)
[2018-12-05] MEDS: SERTRALINE 50 MG TAB PO (08:37)
[2018-12-05] MEDS: FAMOTIDINE 20 MG TAB PO (08:37)
[2018-12-05] MEDS: DOCUSATE SODIUM 100 MG CAP PO ×2 (08:37→21:03)
[2018-12-05] MEDS: DICLOFENAC SODIUM 1% GEL 100 GM TUBE TP ×4 (08:37→21:03)
[2018-12-05] MEDS: POLYETHYLENE GLYCOL 17 GM PACKET PO (08:40)
[2018-12-05] MEDS: ENOXAPARIN 30 MG/0.3 ML SYG SC (08:43)
[2018-12-05] MEDS: HYDROCORTISONE 0.5% 28.35 GM CR TOP (12:30)
[2018-12-05 14:57] LABS: BETA-2 MICROGLOBULIN 2.41 mg/L (< OR = 2.51)
[2018-12-05] MEDS: ATORVASTATIN 20 MG TAB PO (21:02)
[2018-12-05] MEDS: SENNA TAB PO (21:03)
[2018-12-05] MEDS: ZOLPIDEM 5 MG TAB PO (21:06)
[2018-12-05 23:38] LABS: ALBUMIN 3.4 g/dL (3.8-4.8); ALPHA-1-GLOBULINS 0.5 g/dL (0.2-0.3); BETA 2 GLOBULINS 0.3 g/dL (0.2-0.5); BETA GLOBULINS 0.4 g/dL (0.4-0.6); GAMMA GLOBULINS 0.4 g/dL (0.8-1.7)
[2018-12-06] MEDS: DICLOFENAC SODIUM 1% GEL 100 GM TUBE TP ×4 (08:37→20:51)
[2018-12-06] MEDS: POLYETHYLENE GLYCOL 17 GM PACKET PO (08:38)
[2018-12-06] MEDS: MULTIVITAMINS THERAPEUTIC TAB PO (08:39)
[2018-12-06] MEDS: LISINOPRIL 10 MG TAB PO (08:39)
[2018-12-06] MEDS: FAMOTIDINE 20 MG TAB PO (08:39)
[2018-12-06] MEDS: DOCUSATE SODIUM 100 MG CAP PO ×2 (08:39→20:49)
[2018-12-06] MEDS: SERTRALINE 50 MG TAB PO (08:39)
[2018-12-06] MEDS: OXYCODONE/ACETAMINOPHEN (5/325) TAB PO ×2 (08:46→18:22)
[2018-12-06] MEDS: ZOLPIDEM 5 MG TAB PO (20:48)
[2018-12-06] MEDS: ATORVASTATIN 20 MG TAB PO (20:48)
[2018-12-06] MEDS: SENNA TAB PO (20:49)
[2018-12-07 06:51] LABS: ADD MAN DIFF? NO
[2018-12-07 06:57] LABS: ABNORMAL IP MESSAGE 1; BASOPHIL # 0.1 10^3/ul (0.0-0.1); BASOPHILS % 0.8 % (0.0-2.0); EOSINOPHILS # 0.4 10^3/ul (0.0-0.5); EOSINOPHILS % 3.4 % (0.0-7.0); HEMATOCRIT 28.8 % (37.0-47.0); HEMOGLOBIN 9.2 g/dl (12.0-16.0); LYMPHOCYTES # 5.3 10^3/ul (0.8-2.9); LYMPHOCYTES % 44.2 % (15.0-51.0); MEAN CORPUSCULAR HEMOGLOBIN 30.4 pg (29.0-33.0); MEAN CORPUSCULAR HGB CONC 31.9 g/dl (32.0-37.0); MEAN PLATELET VOLUME 9.2 fl (7.4-10.4); MONOCYTE # 0.9 10^3/ul (0.3-0.9); MONOCYTES % 7.4 % (0.0-11.0); NEUTROPHIL # 5.1 10^3/ul (1.6-7.5); NEUTROPHILS % 42.8 % (39.0-77.0); PLATELET COUNT 498 10^3/UL (140-415); RED BLOOD COUNT 3.03 10^6/ul (4.20-5.40); RED CELL DISTRIBUTION WIDTH 16.5 % (11.5-14.5)
[2018-12-07 06:57] LABS: WHITE BLOOD COUNT 11.9 10^3/ul (4.8-10.8)
[2018-12-07 07:00] LABS: POSITIVE DIFF @See below
[2018-12-07] MEDS: DOCUSATE SODIUM 100 MG CAP PO ×2 (08:53→21:00)
[2018-12-07] MEDS: MULTIVITAMINS THERAPEUTIC TAB PO (08:53)
[2018-12-07] MEDS: OXYCODONE/ACETAMINOPHEN (5/325) TAB PO ×2 (08:53→20:43)
[2018-12-07] MEDS: SERTRALINE 50 MG TAB PO (08:54)
[2018-12-07] MEDS: LISINOPRIL 10 MG TAB PO (08:54)
[2018-12-07] MEDS: FAMOTIDINE 20 MG TAB PO (08:54)
[2018-12-07] MEDS: DICLOFENAC SODIUM 1% GEL 100 GM TUBE TP ×4 (08:55→21:00)
[2018-12-07] MEDS: POLYETHYLENE GLYCOL 17 GM PACKET PO (08:58)
[2018-12-07] MEDS: ZOLPIDEM 5 MG TAB PO (20:39)
[2018-12-07] MEDS: ATORVASTATIN 20 MG TAB PO (20:39)
[2018-12-07] MEDS: SENNA TAB PO (21:00)
[2018-12-08] MEDS: OXYCODONE/ACETAMINOPHEN (5/325) TAB PO ×2 (01:22→11:28)
[2018-12-08] MEDS: DOCUSATE SODIUM 100 MG CAP PO (07:49)
[2018-12-08] MEDS: MULTIVITAMINS THERAPEUTIC TAB PO (07:49)
[2018-12-08] MEDS: POLYETHYLENE GLYCOL 17 GM PACKET PO (07:50)
[2018-12-08] MEDS: SERTRALINE 50 MG TAB PO (07:50)
[2018-12-08] MEDS: LISINOPRIL 10 MG TAB PO (07:50)
[2018-12-08] MEDS: FAMOTIDINE 20 MG TAB PO (07:50)
[2018-12-08] MEDS: DICLOFENAC SODIUM 1% GEL 100 GM TUBE TP (07:52)
== END 2018-12-08 12:30 | disposition home health service (06) | DRG 560 ==
LOC: VRC 20:01
PROC: F07Z5FZ Bed Mobility Treatment using Assistive, Adaptive, Supportive or Protective Equipment (ICD-10-PCS; principal; 2018-11-22)
PROC: F07Z8FZ Transfer Training Treatment using Assistive, Adaptive, Supportive or Protective Equipment (ICD-10-PCS; 2018-11-22)
PROC: F07Z9FZ Gait Training/Functional Ambulation Treatment using Assistive, Adaptive, Supportive or Protective Equipment (ICD-10-PCS; 2018-11-22)
PROC: F08Z1FZ Dressing Techniques Treatment using Assistive, Adaptive, Supportive or Protective Equipment (ICD-10-PCS; 2018-11-22)
PROC: F08Z0FZ Bathing/Showering Techniques Treatment using Assistive, Adaptive, Supportive or Protective Equipment (ICD-10-PCS; 2018-11-22)
PROC: F08Z2FZ Grooming/Personal Hygiene Treatment using Assistive, Adaptive, Supportive or Protective Equipment (ICD-10-PCS; 2018-11-22)
DX: S72.002D Fracture of unspecified part of neck of left femur, subsequent encounter for closed fracture with routine healing (principal); D47.9 Neoplasm of uncertain behavior of lymphoid, hematopoietic and related tissue, unspecified; C91.10 Chronic lymphocytic leukemia of B-cell type not having achieved remission; F33.1 Major depressive disorder, recurrent, moderate; I95.9 Hypotension, unspecified; E78.5 Hyperlipidemia, unspecified; M80.00XD Age-related osteoporosis with current pathological fracture, unspecified site, subsequent encounter for fracture with routine healing; G89.18 Other acute postprocedural pain; F41.9 Anxiety disorder, unspecified; M54.16 Radiculopathy, lumbar region; W19.XXXD Unspecified fall, subsequent encounter
CPT/HCPCS: 80048; 80053; 81001; 82784; 83615; 84155; 84165; 84560; 85025; 86320; 86325; 87081; 87086; 97110; 97112; 97116; 97150; 97162; 97166; 97530; 97535; 97542

== ENCOUNTER 2019-01-03 21:49 | Emergency (ER) | payer MEDICARE, OTHER ==
[2019-01-03 22:32] LABS: ADD MAN DIFF? NO
[2019-01-03 22:34] LABS: WHITE BLOOD COUNT 11.4 10^3/ul (4.8-10.8)
[2019-01-03 22:34] LABS: BASOPHIL # 0.1 10^3/ul (0.0-0.1); BASOPHILS % 0.6 % (0.0-2.0); EOSINOPHILS # 0.1 10^3/ul (0.0-0.5); HEMATOCRIT 36.8 % (37.0-47.0); HEMOGLOBIN 12.1 g/dl (12.0-16.0); LYMPHOCYTES # 4.4 10^3/ul (0.8-2.9); LYMPHOCYTES % 38.8 % (15.0-51.0); MEAN CORPUSCULAR HEMOGLOBIN 30.2 pg (29.0-33.0); MEAN CORPUSCULAR HGB CONC 32.9 g/dl (32.0-37.0); MEAN CORPUSCULAR VOLUME 91.8 fl (82.0-101.0); MEAN PLATELET VOLUME 8.5 fl (7.4-10.4); MONOCYTES % 8.8 % (0.0-11.0); NEUTROPHIL # 5.7 10^3/ul (1.6-7.5); NEUTROPHILS % 50.4 % (39.0-77.0); PLATELET COUNT 397 10^3/UL (140-415); RED BLOOD COUNT 4.01 10^6/ul (4.20-5.40); RED CELL DISTRIBUTION WIDTH 14.3 % (11.5-14.5)
[2019-01-03 22:53] LABS: ANION GAP 11 (5-13); BLOOD UREA NITROGEN 9 mg/dl (7-20); CALCIUM 9.8 mg/dl (8.4-10.2); CARBON DIOXIDE 22 mmol/L (21-31); CHLORIDE 95 mmol/L (97-110); GLUCOSE 121 mg/dl (70-220); POTASSIUM 3.9 mmol/L (3.5-5.1); SODIUM 128 mmol/L (135-144)
[2019-01-03] MEDS: LORAZEPAM 1 MG TAB PO (22:54)
[2019-01-03] MEDS: NICARDipine HCL 30 MG CAPSULE PO ×2 (23:41→23:44)
== END 2019-01-04 00:20 | disposition home or self-care (01) ==
LOC: E/R 01-04 00:20
DX: I10 Essential (primary) hypertension (principal); E87.1 Hypo-osmolality and hyponatremia; F32.9 Major depressive disorder, single episode, unspecified; Z79.82 Long term (current) use of aspirin
CPT/HCPCS: 36415; 80048; 85025; 93005; 99284-25